=== PATIENT | male | born 1950 | race Caucasian/White ===

== ENCOUNTER 2018-09-03 14:07 | Outpatient (REF) | payer MEDICARE, SELFPAY ==
[2018-09-03 21:43] LABS: ALT 44 U/L (12-78); AST 22 U/L (15-37); Albumin 4.3 g/dL (3.4-5.0); Alkaline Phosphatase 72 U/L (46-116); Anion Gap 10.5 mmol/L (3-11); BUN 22 mg/dL (7-18); CO2 26.5 mmol/L (21.0-32.0); Calcium 9.4 mg/dL (8.5-10.1); Chloride 102 mmol/L (98-107); Glucose 99 mg/dL (70-100); Potassium 4.2 mmol/L (3.5-5.1); Sodium 139 mmol/L (136-145)
[2018-09-05 10:15] LABS: Hepatitis C Ab w Rflx HCV PCR Negative (NEGAT)
== END 2018-09-03 14:27 ==
LOC: NCHCN 14:07
PROVIDERS: PCP Internal Medicine; Visit Provider Nurse Practitioner Family
DX: R00.2 Palpitations (principal); E78.5 Hyperlipidemia, unspecified; I10 Essential (primary) hypertension; N40.0 Benign prostatic hyperplasia without lower urinary tract symptoms; H40.053 Ocular hypertension, bilateral; Z11.59 Encounter for screening for other viral diseases
CPT/HCPCS: 80053; 86803

== ENCOUNTER 2018-09-17 12:26 | Outpatient (REF) | payer MEDICARE, SELFPAY ==
[2018-09-17 13:38] LABS: Anion Gap 7.5 mmol/L (3-11); BUN 16 mg/dL (7-18); CO2 28.5 mmol/L (21.0-32.0); CREATININE 0.95 mg/dL (0.70-1.30); Calcium 9.1 mg/dL (8.5-10.1); Chloride 106 mmol/L (98-107); Glucose 105 mg/dL (70-100); Potassium 4.3 mmol/L (3.5-5.1); Sodium 142 mmol/L (136-145)
== END 2018-09-17 12:46 ==
LOC: NCHCN 12:26
PROVIDERS: PCP Internal Medicine; Visit Provider Nurse Practitioner Family
DX: I10 Essential (primary) hypertension (principal)
CPT/HCPCS: 80048

== ENCOUNTER 2018-10-07 00:50 | Outpatient (CLI) | payer MEDICARE, SELFPAY ==
--- NOTE | 2018-10-07 07:13 | DI.US_ITS ---
SYMPTOM/DIAGNOSIS: SCREENING FOR AAA, Z13.6 AORTA ULTRASOUND: Sonographic evaluation of the abdominal aorta was performed. There is no evidence of an abdominal aortic aneurysm. Maximum diameter of the abdominal aorta is 2.7 cm. The right common iliac artery measures 1.3 cm. in maximum diameter. The left common iliac artery measures 1.3 cm. in diameter. IMPRESSION: No evidence of an abdominal aortic aneurysm.
== END 2018-10-07 01:10 ==
PROVIDERS: PCP Internal Medicine; Visit Provider Nurse Practitioner Family
DX: Z13.6 Encounter for screening for cardiovascular disorders (principal); I10 Essential (primary) hypertension
CPT/HCPCS: 76706

== ENCOUNTER 2019-07-17 11:00 | Outpatient (REF) | payer MEDICARE, SELFPAY ==
[2019-07-17 12:12] LABS: ALT 47 U/L (16-63); AST 29 U/L (15-37); Alkaline Phosphatase 70 U/L (46-116); Anion Gap 11.7 mmol/L (3-11); BUN 19 mg/dL (7-18); Bilirubin, Total 0.6 mg/dL (0.2-1.0); CO2 24.3 mmol/L (21.0-32.0); CREATININE 0.95 mg/dL (0.70-1.30); Calcium 8.6 mg/dL (8.5-10.1); Chloride 106 mmol/L (98-107); Glucose 112 mg/dL (70-100); Potassium 4.7 mmol/L (3.5-5.1); Sodium 142 mmol/L (136-145); Total Protein 6.9 g/dL (6.4-8.2)
== END 2019-07-17 11:20 ==
LOC: NCHCN 11:00
PROVIDERS: PCP Internal Medicine; Visit Provider Nurse Practitioner Family
DX: E78.5 Hyperlipidemia, unspecified (principal); I10 Essential (primary) hypertension; R00.2 Palpitations; N40.0 Benign prostatic hyperplasia without lower urinary tract symptoms
CPT/HCPCS: 80053

== ENCOUNTER 2020-08-23 10:07 | Outpatient (REF) | payer MEDICARE, SELFPAY ==
[2020-08-23 22:09] LABS: ALT 38 U/L (16-63); AST 27 U/L (15-37); Albumin 4.1 g/dL (3.4-5.0); Alkaline Phosphatase 67 U/L (46-116); Anion Gap 9.8 mmol/L (3-11); BUN 18 mg/dL (7-18); Bilirubin, Total 0.8 mg/dL (0.2-1.0); CO2 24.2 mmol/L (21.0-32.0); CREATININE 0.87 mg/dL (0.70-1.30); Calcium 8.8 mg/dL (8.5-10.1); Chloride 107 mmol/L (98-107); Glucose 116 mg/dL (74-106); Potassium 4.4 mmol/L (3.5-5.1); Sodium 141 mmol/L (136-145); Total Protein 6.8 g/dL (6.4-8.2)
== END 2020-08-23 10:27 ==
LOC: NCHCN 10:07
PROVIDERS: PCP Internal Medicine; Visit Provider Nurse Practitioner Family
DX: I10 Essential (primary) hypertension (principal); E78.5 Hyperlipidemia, unspecified; N40.0 Benign prostatic hyperplasia without lower urinary tract symptoms
CPT/HCPCS: 80053

== ENCOUNTER 2020-12-10 21:19 | Outpatient (REF) | payer MEDICARE, SELFPAY ==
[2020-12-10 20:55] LABS: Abs Immature Grans 0.03 10^3/uL (0.0-0.06); Absolute Basophil Count 0.03 10^3/uL (0.0-0.2); Absolute Eosinophil Count 0.05 10^3/uL (0.0-0.7); Absolute Lymphocyte Count 1.84 10^3/uL (1.2-3.4); Absolute Neutrophil Count 7.25 10^3/uL (1.2-6.7); Basophils % 0.3; Eosinophils % 0.5; HCT 42.7 % (40.0-50.0); HGB 14.5 g/dL (13.5-17.5); Immature Grans % 0.3; Lymphocytes % 18.2; MCV 88.2 fL (80-95); MPV 10.4 fL (8.0-11.0); Monocytes % 8.9; Neutrophils % 71.8; Nucleated RBC 0 %; Platelet Count 354 10^3/uL (130-400); RBC 4.84 10^6/uL (4.36-5.78); RDW 12.5 % (11.8-14.1); RDW-SD 40.8 fL
[2020-12-10 21:02] LABS: ALT 21 U/L (16-63); AST 17 U/L (15-37); Albumin 3.5 g/dL (3.4-5.0); Alkaline Phosphatase 88 U/L (46-116); Anion Gap 11.3 mmol/L (3-11); BUN 12 mg/dL (7-18); Bilirubin, Total 0.9 mg/dL (0.2-1.0); CO2 24.7 mmol/L (21.0-32.0); CREATININE 0.9 mg/dL (0.70-1.30); Chloride 102 mmol/L (98-107); Glucose 91 mg/dL (74-106); Sodium 138 mmol/L (136-145); Total Protein 6.8 g/dL (6.4-8.2)
== END 2020-12-10 21:20 | disposition home or self-care (01) ==
LOC: NCHCN 21:19
PROVIDERS: PCP Internal Medicine; Visit Provider Family Medicine
DX: K57.92 Diverticulitis of intestine, part unspecified, without perforation or abscess without bleeding (principal)
CPT/HCPCS: 80053; 85025

== ENCOUNTER 2020-12-10 22:26 | Outpatient (CLI) | payer MEDICARE, SELFPAY ==
--- NOTE | 2020-12-10 | DI.CT_ITS ---
EXAM: CT ABDOMEN PELVIS W CLINICAL HISTORY: DIVERTICULITIS ACUTE, K57.92. TECHNIQUE: Imaging Protocol: Axial computed tomography images with coronal and sagittal reformatted images were created and reviewed CONTRAST MATERIAL: Intravenous: Omnipaque 350 Contrast volume:100 cc Oral: / no COMPARISON: US AAA screening from 10/07/2018 US AAA screening from 10/07/2018 FINDINGS: ABDOMEN: Lung Bases: Normal where visualized. Heart mildly enlarged. Liver: Normal density. No measurable mass. Gallbladder and biliary tract: No radiodense calculus or dilation. Pancreas: Normal density, no abnormal calcifications or inflammatory process. Spleen: Normal. Kidneys: Normal size, contour and axis. No radiodense stones or obstructive uropathy. No masses seen. Adrenal glands: No masses seen. Abdominal Aorta: Abdominal portion non-dilated. PELVIS: Bladder: Right-sided bladder diverticulum containing a tiny stone. Mild diffuse bladder wall thicken ing. Bowel: Diverticulosis of the descending and sigmoid colon. Inflammatory changes and wall thickening of the junction of the descending and proximal sigmoid colon, consistent with diverticulitis. There is no evidence of abscess. Normal appendix. No small bowel distension. Bones: Within normal limits. Reproductive organs: Enlarged prostate, impressing on the base of the bladder. Lymph nodes: Unremarkable. Impression: Diverticulitis of the proximal sigmoid colon. No evidence of abscess.. RADIATION DOSE DELIVERED: 767.31mGy.cm Total DLP DATA REPOSITORY: All CT scans at this facility are submitted to the National Radiology Data Registry (NRDR) Dose Index Registry (DIR) with the [employer] ([employer]). RADIATION OPTIMIZATION: All CT scans at this facility use at least one of these dose optimization te chniques: automated exposure control; mA and/or kV adjustment per patient size (includes targeted exa ms where dose is matched to clinical indication); or iterative reconstruction.
[2020-12-10] MEDS: Omnipaque 350 MG/ML 100 ML BTL IJ (16:12)
[2020-12-10] MEDS: Normal Saline - Diluent 50 ML VIAL IV (16:14)
--- NOTE | 2020-12-10 16:31 | DI.VRAD_ITS ---
PROCEDURE INFORMATION: Exam: CT Abdomen And Pelvis With Contrast Exam date and time: 12/10/2020 4:03 PM Age: 70 years old Clinical indication: Condition or disease; Patient HX: Acute diverticulitis TECHNIQUE: Imaging protocol: Computed tomography of the abdomen and pelvis with contrast. COMPARISON: US AAA screening 10/07/2018 12:40 PM FINDINGS: Liver: Normal. No mass. Gallbladder and bile ducts: Normal. No calcified stones. No ductal dilation. Pancreas: Normal. No ductal dilation. Spleen: Normal. No splenomegaly. Adrenal glands: Normal. No mass. Kidneys and ureters: There is a simple cyst of the superior pole right kidney measuring 7 mm in diameter. Stomach and bowel: Diverticulosis is present. There is extensive wall thickening and adjacent mesenteric edema of the sigmoid colon. No abscess is noted. Appendix: The appendix is well-visualized and appears normal. Intraperitoneal space: Unremarkable. No free air. No significant fluid collection. Vasculature: Unremarkable. No abdominal aortic aneurysm. Lymph nodes: Unremarkable. No enlarged lymph nodes. Urinary bladder: Unremarkable as visualized. Reproductive: The prostate is enlarged measuring 5.4 cm in diameter. Bones/joints: Chronic degenerative changes of the spine are present. Soft tissues: Unremarkable. IMPRESSION: 1. Diverticulosis with extensive sigmoid inflammatory changes consistent with acute diverticulitis. 2. Enlarged prostate. 3. Tiny simple cyst of the superior pole right kidney. Dictated and Authenticated by: Nirav Brown MD. Ordering:PHIL Desouza MD
== END 2020-12-10 22:46 ==
PROVIDERS: PCP Internal Medicine; Visit Provider Family Medicine
DX: K57.32 Diverticulitis of large intestine without perforation or abscess without bleeding (principal)
CPT/HCPCS: 74177; J3490

== ENCOUNTER 2024-11-25 01:57 | Outpatient (CLI) | payer MEDICARE, SELFPAY ==
--- NOTE | 2024-11-25 | DI.MRI_ITS ---
Exam(s) MR LOWER JOINT RT WO EXAM: MR LOWER JOINT RT WO CLINICAL HISTORY: INTERNAL DERANGEMENT RT KNEE M23.91 RT KNEE PAIN, LOCKING, CATCHING AND. TECHNIQUE: Multiplanar multisequence MRI was performed. COMPARISON: No exams were available for comparison FINDINGS: BONES: Edema in the medial femoral condyle consistent with bone contusion. JOINTS: A large joint effusion is present. Articular cartilage: Patellofemoral joint: Articular cartilage is unremarkable. Medial femoral tibial joint: At the area of medial femoral condyle bone contusion, there is a large f ull-thickness focal cartilage defect measuring 7 millimeters transverse by 2.5 cm cephalo caudad. Lateral femoral tibial joint: Articular cartilage is unremarkable. LIGAMENTS/TENDONS: Anterior Cruciate: Appears edematous. Findings could represent partial tear versus mucoid degenerati on. Posterior Cruciate: Unremarkable. Medial Collateral:Surrounding fluid. No discrete tear. Lateral Collateral ligament complex: Unremarkable. Extensor mechanism: Unremarkable. Medial retinaculum: Unremarkable. Lateral retinaculum: Unremarkable. Popliteus: Unremarkable. MENISCI: The medial meniscus is unremarkable. The lateral meniscus is unremarkable. MUSCLES: Unremarkable. SOFT TISSUES: Edema, greater anteriorly. IMPRESSION: Large focal cartilage defect at the medial femoral condyle and adjacent bone contusion. There is a l arge joint effusion however a displaced cartilage fragment is not identified. ACL sprain versus mucoid degeneration. Fluid surrounding the medial collateral ligament could indicate a sprain. DATA REPOSITORY:
== END 2024-11-25 02:17 ==
LOC: DI 01:59
PROVIDERS: PCP Internal Medicine; Visit Provider Specialist
DX: M23.91 Unspecified internal derangement of right knee (principal)
CPT/HCPCS: 73721

== ENCOUNTER 2024-11-28 15:25 | Outpatient (REF) | payer MEDICARE, SELFPAY ==
[2024-11-28 15:40] LABS: ALT 25 U/L (16-63); AST 24 U/L (15-37); Alkaline Phosphatase 79 U/L (46-116); Anion Gap 8.6 mmol/L (3-11); BUN 19 mg/dL (7-18); Bilirubin, Total 1.27 mg/dL (0.2-1.0); CO2 29.4 mmol/L (21.0-32.0); CREATININE 0.9 mg/dL (0.70-1.30); Calcium 9.2 mg/dL (8.5-10.1); Calculated LDL 141 mg/dL (<100); Chloride 104 mmol/L (98-107); Cholesterol 260 mg/dL (<200); Estimated GFR 89.62 (mL/min/1.73m2); Glucose 101 mg/dL (74-106); HDL Cholesterol 102 mg/dL (>or=40); Potassium 4.4 mmol/L (3.5-5.1); Sodium 142 mmol/L (136-145); Total Protein 6.8 g/dL (6.4-8.2); Triglyceride 86 mg/dL (<150)
== END 2024-11-28 15:26 | disposition home or self-care (01) ==
LOC: NCHCN 15:25
PROVIDERS: PCP Internal Medicine; Visit Provider Nurse Practitioner Family
DX: I10 Essential (primary) hypertension (principal)
CPT/HCPCS: 80053; 80061

== ENCOUNTER 2025-01-01 12:53 | Outpatient (REF) | payer MEDICARE, SELFPAY ==
[2025-01-01 16:05] LABS: ALT 38 U/L (16-63); AST 28 U/L (15-37); Albumin 4.3 g/dL (3.4-5.0); Alkaline Phosphatase 71 U/L (46-116); Anion Gap 14.2 mmol/L (3-11); BUN 18 mg/dL (7-18); Bilirubin, Total 1.3 mg/dL (0.2-1.0); CO2 22.8 mmol/L (21.0-32.0); Calcium 9.5 mg/dL (8.5-10.1); Calculated LDL 93 mg/dL (<100); Chloride 106 mmol/L (98-107); Cholesterol 204 mg/dL (<200); Estimated GFR 78.98 (mL/min/1.73m2); Glucose 96 mg/dL (74-106); HDL Cholesterol 94 mg/dL (>or=40); Potassium 4.6 mmol/L (3.5-5.1); Sodium 143 mmol/L (136-145); Total Protein 6.9 g/dL (6.4-8.2); Triglyceride 87 mg/dL (<150)
[2025-01-03 12:30] LABS: Free PSA/PSA Ratio 0.22 ratio
== END 2025-01-01 12:54 | disposition home or self-care (01) ==
LOC: NCHCN 12:53
PROVIDERS: PCP Nurse Practitioner Family; Visit Provider Nurse Practitioner Family
DX: N40.1 Benign prostatic hyperplasia with lower urinary tract symptoms (principal)
CPT/HCPCS: 80053; 80061; 84154

== ENCOUNTER 2025-05-21 15:00 | Outpatient (CLI) | payer MEDICARE, SELFPAY ==
--- NOTE | 2025-05-21 14:45 | DI.RAD_ITS ---
Exam(s) XR KNEE RT 4V AP,LAT,LINA,PAT EXAM: XR KNEE RT 4V AP,LAT,LINA,PAT CLINICAL HISTORY: right knee pain. TECHNIQUE: 2D digital imaging was performed. Three views. COMPARISON: MR MR LOWER JOINT RT WO from 11/25/2024 FINDINGS: BONES: There is a small bony fragment measuring 6 by 2 millimeters seen at the femoral intercondylar notch, adjacent to the medial femoral condyle. This is likely an osteochondral fracture fragment displaced from the medial femoral condyle which was seen on the prior MRI. No bony destructive lesion is seen. JOINTS: The knee is normally aligned. There is minimal periarticular spurring. A small joint effusion is seen. SOFT TISSUE: Normal. IMPRESSION: Small fracture fragment noted at the medial aspect of the femoral intercondylar notch consistent with displaced osteochondral fragment. DATA REPOSITORY: RADIATION DOSE DELIVERED:
== END 2025-05-21 15:01 | disposition home or self-care (01) ==
LOC: DIORS 15:00
PROVIDERS: PCP Nurse Practitioner Family; Referring Provider Nurse Practitioner Family; Visit Provider Physician Assistant
DX: M25.561 Pain in right knee (principal); M17.11 Unilateral primary osteoarthritis, right knee
CPT/HCPCS: 20610; J1010; 73564